=== PATIENT | female | born 1950 | race Caucasian/White ===

== ENCOUNTER 2017-06-03 19:06 | Emergency (ER) | payer SELFPAY ==
[2017-06-03 19:07] VITALS: BMI 31.4
[2017-06-03 19:19] VITALS: TEMP 98.7
[2017-06-03] MEDS ORDERED: Albuterol-Ipratrop 3 mg / 0.5 (3 ml) UD IH STA ×2 (19:33→19:36)
--- NOTE | 2017-06-03 19:36 | ED PDOC ---
Arrival/HPI - General Chief Complaint: Shortness Of Breath Time Seen by Provider: 06/03/17 19:12 - History of Present Illness Narrative History of Present Illness (Text): 06/03/17 19:34 Patient is a 66 y/o F presenting with 2 day history of nasal congestion and non- productive cough. She reports her symptoms worsened today with some wheezing so she presented to ED. Denies fever. Denies chest pain. Patient reports grandchildren with similar symptoms. 06/03/17 21:29 Past Medical History - Provider Review Nursing Documentation Reviewed: Yes - Tetanus Immunization Tetanus Immunization: Unknown - Cardiac Hx Hypertension: Yes - Musculoskeletal/Rheumatological Hx Arthritis: Yes - Psychiatric Hx Substance Use: No - Surgical History Hx Section: Yes - Anesthesia Hx Anesthesia: Yes Family/Social History - Physician Review Nursing Documentation Reviewed: Yes Family/Social History: No Known Family HX Smoking Status: Never Smoked Hx Alcohol Use: No Hx Substance Use: No Hx Substance Use Treatment: No Allergies/Home Meds Allergies/Adverse Reactions: Allergies No Known Allergies Allergy (Verified 06/03/17 19:07) Home Medications: Home Meds Medication Instructions Recorded Confirmed Albuterol HFA [Ventolin HFA 90 1 puff INH PRN PRN 06/03/17 06/03/17 mcg/actuation (8 g)] Aspirin [Aspirin Chewable] 81 mg PO DAILY 06/03/17 06/03/17 Calcium Carbonate/Vitamin D3 1 tab PO BID 06/03/17 06/03/17 [Calcium 500 + Vit D Caplet] Cholecalciferol [Vitamin D 1000 IU] 1 tab PO MON 06/03/17 06/03/17 Fexofenadine HCl [Aller-Ease] 60 mg PO DAILY 06/03/17 06/03/17 Fluticasone Propionate [Flonase 1 spray INH PRN PRN 06/03/17 06/03/17 Allergy Relief] Guaifenesin [Mucinex] 600 mg PO PRN PRN 06/03/17 06/03/17 Lisinopril [Zestril] 20 mg PO DAILY 06/03/17 06/03/17 Metoprolol Tartrate [Lopressor] 50 mg PO BID 06/03/17 06/03/17 metFORMIN [glucOPHAGE] 500 mg PO BID 06/03/17 06/03/17 Review of Systems - Physician Review All systems were reviewed & negative as marked: Yes - Review of Systems Constitutional: absent: Fatigue, Fevers ENT: absent: Hearing Changes Respiratory: SOB, Cough, Sputum, Wheezing Cardiovascular: absent: Chest Pain, Palpitations, Edema, Calf Pain, COCHRAN, Orthopnea, Syncope Gastrointestinal: absent: Abdominal Pain, Constipation, Diarrhea, Nausea, Vomiting Neurological: absent: Headache Psychiatric: absent: Anxiety Physical Exam Vital Signs Reviewed: Yes Vital Signs Temp Pulse Resp BP Pulse Ox 06/03/17 21:37 112 H 20 160/86 H 100 06/03/17 20:04 109 H 20 152/91 H 95 06/03/17 19:20 22 97 06/03/17 19:18 98.7 F 100 H 22 188/103 H 97 Temperature: Afebrile Blood Pressure: Normal Pulse: Regular Respiratory Rate: Normal Appearance: Positive for: Well-Appearing, Non-Toxic, Comfortable Pain Distress: None Mental Status: Positive for: Alert and Oriented X 3 - Systems Exam Head: Present: Atraumatic, Normocephalic Pupils: Present: PERRL Extroacular Muscles: Present: EOMI Conjunctiva: Present: Normal Mouth: Present: Moist Mucous Membranes Neck: Present: Normal Range of Motion Respiratory/Chest: Present: Good Air Exchange, Wheezes. No: Respiratory Distress, Accessory Muscle Use Cardiovascular: Present: Regular Rate and Rhythm, Normal S1, S2. No: Murmurs Abdomen: No: Tenderness, Distention Back: Present: Normal Inspection Upper Extremity: Present: Normal Inspection Lower Extremity: Present: Normal Inspection Psychiatric: Present: Alert, Oriented x 3 Medical Decision Making ED Course and Treatment: 06/03/17 19:36 EKG shows sinus tachycardia at 104bpm with non-specific st changes 06/03/17 21:29 Cxray negative. Wheezing resolved after 2 duonebs. Patient reports that she feels better. WBC mildly elevated, but afebrile and well appearing with normal cxray. Lactate WNL. 06/03/17 22:07 Patient has been monitored in ED for 3.5 hours. She has never been in any respiratory distress and has been maintaining her O2 saturation. She has normal respiratory rate. After 2 duonebs, wheezing was resolved. After 3rd duoneb patient continues to feel well. Patient has some residual tachycardia but likely from duonebs. She reports that she feels better and wants to go home. Spoke with daughter who agrees. Will dc patient with zpack, nebulizer and cough medication. Patient and daughter were given detailed return instructions. - Lab Interpretations Lab Results: 06/03/17 19:40 06/03/17 19:40 Lab Results 06/03/17 20:15: Influenza Typ A,B (EIA) Negative for flu a/b 06/03/17 20:05: pO2 44, VBG pH 7.42, VBG pCO2 47.0, VBG HCO3 30.5 H, VBG Total CO2 31.9 H, VBG O2 Sat (Calc) 84.9 H, VBG Base Excess 5.1 H, VBG Potassium 3.9, Glucose 120 H, Lactate 1.7, FiO2 21.0, Sodium 140.0, Chloride 105.0, Venous Blood Potassium 3.9 06/03/17 19:40: Sodium 141, Potassium 3.7, Chloride 101, Carbon Dioxide 28, Anion Gap 16, BUN 16, Creatinine 0.9, Est GFR ( Amer) > 60, Est GFR (Non- Af Amer) > 60, Random Glucose 110, Calcium 9.4, Total Bilirubin 0.3, AST 26, ALT 32, Alkaline Phosphatase 60, Lactate Dehydrogenase 675, Total Creatine Kinase 304 H, CK-MB (CK-2) 2.6, CK-MB (CK-2) % Cancelled, Troponin I 0.02, NT- Pro-B Natriuret Pep 154, Total Protein 7.8, Albumin 4.5, Globulin 3.3, Albumin/ Globulin Ratio 1.4 06/03/17 19:40: WBC 15.9 H D, RBC 4.68, Hgb 13.9, Hct 42.0, MCV 89.7, MCH 29.7, MCHC 33.1, RDW 13.8, Plt Count 286, MPV 10.7, Gran % 60.4, Lymph % (Auto) 24.3, Holt % (Auto) 6.9 H, Eos % (Auto) 7.6 H, Baso % (Auto) 0.8, Gran # 9.59 H, Lymph # 3.9 H, Holt # 1.1 H, Eos # 1.2 H, Baso # 0.12 - RAD Interpretation Radiology Orders: 06/03/17 19:33 CHEST TWO VIEWS (PA/LAT) [RAD] Stat - Medication Orders Current Medication Orders: Discontinued Medications Albuterol Sulfate (Albuterol 0.083% Inhal Bailee (2.5 Mg/3 Ml) Ud) 2.5 mg IH STAT STA Stop: 06/03/17 21:29 Last Admin: 06/03/17 21:32 Dose: 2.5 mg Albuterol/Ipratropium (Duoneb 3 Mg/0.5 Mg (3 Ml) Ud) 3 ml IH STAT STA Stop: 06/03/17 19:34 Last Admin: 06/03/17 19:35 Dose: 3 ml Albuterol/Ipratropium (Duoneb 3 Mg/0.5 Mg (3 Ml) Ud) 3 ml IH STAT STA Stop: 06/03/17 19:37 Last Admin: 06/03/17 20:05 Dose: 3 ml Azithromycin (Zithromax) 500 mg PO STAT STA PRN Reason: Protocol Stop: 06/03/17 21:26 Last Admin: 06/03/17 21:32 Dose: 500 mg Benzonatate (Tessalon Perles) 100 mg PO STAT STA Stop: 06/03/17 19:37 Last Admin: 06/03/17 20:05 Dose: 100 mg Promethazine HCl/Codeine (Phenergan/Codeine Oral Syrup) 5 ml PO STAT STA Stop: 06/03/17 22:22 Disposition/Present on Arrival - Present on Arrival Any Indicators Present on Arrival: No History of DVT/PE: No History of Uncontrolled Diabetes: No Urinary Catheter: No History of Decub. Ulcer: No History Surgical Site Infection Following: None - Disposition Have Diagnosis and Disposition been Completed?: Yes Diagnosis: Upper respiratory infection Disposition: HOME/ ROUTINE Disposition Time: 22:13 Patient Plan: Discharge Patient Problems: Current Active Problems Problem Status Onset Upper respiratory infection Acute Condition: GOOD Discharge Instructions (ExitCare): Upper Respiratory Infection (ED), Viral Syndrome (ED), Wheezing (ED) Additional Instructions: Follow-up with PMD within 2 days. Use nebulizer every 6 hours. Return immediately with any worsening symptoms. Take full course of antibiotics. Prescriptions: Albuterol HFA [Ventolin HFA 90 mcg/actuation (8 g)] 2 puff IH Q6H #1 puff Azithromycin 250 mg PO DAILY #4 tablet Benzonatate [Tessalon Perles] 100 mg PO TID PRN #20 sgl PRN Reason: Cough Referrals: Nasim King MD [Primary Care Provider] - Follow up with primary Forms: [employer] (Polish), WORK NOTE
[2017-06-03 19:58] LABS: BASO # 0.12 K/mm3 (0.0-2.0); BASO % 0.8 % (0.0-3.0); EOS # 1.2 (0.0-0.7); EOS % 7.6 % (1.5-5.0); GRAN # 9.59 (1.4-6.5); GRAN % 60.4 % (50.0-68.0); LYMPH # 3.9 (1.2-3.4); LYMPH % 24.3 % (22.0-35.0); MEAN CELL VOLUME 89.7 fl (80.0-105.0); MEAN CORPUSCULAR HEMOGLOBIN 29.7 pg (25.0-35.0); MEAN CORPUSCULAR HGB CONC 33.1 g/dl (31.0-37.0); MEAN PLATELET VOLUME 10.7 fl (7.0-11.0); MONO # 1.1 (0.1-0.6); MONO % 6.9 % (1.0-6.0); RED CELL DISTRIBUTION WIDTH 13.8 % (11.5-14.5); WHITE BLOOD COUNT 15.9 10^3/ul (4.5-11.0)
[2017-06-03 20:03] LABS: ALB/GLOB RATIO 1.4 (1.1-1.8); ALKALINE PHOSPHATASE 60 U/L (38-126); ALT/SGPT 32 U/L (7-56); AST/SGOT 26 U/L (14-36); BILIRUBIN,TOTAL 0.3 mg/dL (0.2-1.3); BLOOD UREA NITROGEN 16 mg/dL (7-21); CALCIUM 9.4 mg/dL (8.4-10.5); CARBON DIOXIDE 28 mmol/L (21-33); CHLORIDE 101 mmol/L (98-107); GLUCOSE,RANDOM 110 mg/dL (70-110); POTASSIUM 3.7 mmol/L (3.6-5.0); SODIUM 141 mmol/L (132-148); TOTAL PROTEIN 7.8 g/dL (5.8-8.3)
[2017-06-03 20:07] LABS: GFR AFRICAN-AMERICAN > 60
[2017-06-03 20:14] LABS: TROPONIN I 0.02 ng/mL
[2017-06-03 20:21] LABS: VENOUS BLOOD GAS BASE EXCESS 5.1 mmol/L (0.0-2.0); VENOUS BLOOD PH 7.42 (7.32-7.43)
[2017-06-03] MEDS ORDERED: Albuterol HFA 90 mcg/actuation (8 g) IH STA (21:24)
[2017-06-03] MEDS ORDERED: Albuterol 0.083% Inhal Sol (2.5 mg/3 mL) UD IH STA (21:28)
[2017-06-03] MEDS ORDERED: Promethazine/Cod 6.25mg-10mg/5ml Syr UD PO STA (22:21)
[2017-06-03 22:40] VITALS: BP 141/72; PULSE 115; RESP 16; O2SAT 95
--- NOTE | 2017-06-04 11:03 | RAD ---
HISTORY: cough COMPARISON: 01/25/2013. TECHNIQUE: Chest PA and lateral FINDINGS: LUNGS: The lungs are well inflated and clear. PLEURA: No significant pleural effusion identified. No pneumothorax apparent. CARDIOVASCULAR: Normal. OSSEOUS STRUCTURES: Within normal limits for the patient's age. VISUALIZED UPPER ABDOMEN: Normal. OTHER FINDINGS: None. IMPRESSION: No active pulmonary disease.
--- NOTE | 2017-06-04 22:59 | CARD ---
APPROVED REPORT EKG Measurement Heart [id number] DC [id number] <Conclusion> Sinus tachycardia Nonspecific ST abnormality Abnormal ECG
== END 2017-06-03 22:48 | disposition home or self-care (01) ==
LOC: ED 19:06
DX: J06.9 Acute upper respiratory infection, unspecified (principal)

== ENCOUNTER 2018-10-20 09:22 | Outpatient (CLI) | payer MEDICARE, MEDICAID | END 2018-10-20 09:23 | disposition home or self-care (01) | LOC: RAD 09:22 ==